=== PATIENT | female | born 1990 | race Caucasian/White ===

== ENCOUNTER 2016-10-15 11:53 | Emergency (ER) | payer OTHER ==
[2016-10-15 12:43] LABS: Urine Bilirubin Negative (NEGATIVE); Urine Blood Negative /ul (NEGATIVE); Urine Ketone Negative (NEGATIVE); Urine Nitrite Negative (NEGATIVE); Urine Protein Negative (NEGATIVE); Urine Urobilinogen Normal (NORMAL); Urine pH 7.5 pH (5.0-7.0)
[2016-10-15 12:53] LABS: Urine Appearance Clear; Urine Bacteria 3+; Urine Color Yellow; Urine RBC 0-5 /hpf (0-5); Urine Renal Epithelial Cell TRACE /hpf; Urine WBC 0-5 /hpf (0-5)
[2016-10-15] MEDS ORDERED: KETOROLAC TROMETHAMINE 60 MG/2 ML VIAL IM ONE ×2 (12:56→13:14)
[2016-10-15] MEDS ORDERED: SUCRALFATE 1 G/10 ML UDC PO ONE (12:57)
[2016-10-15] MEDS ORDERED: LIDOCAINE HCL 20 ML UDC PO ONE (12:57)
[2016-10-15] MEDS ORDERED: MAG HYDROX/ALUMINUM HYD/SIMETH 30 ML UDC PO ONE (12:57)
--- NOTE | 2016-10-15 13:02 | ERNOTE ---
Abdominal HPI - Narrative Date of Service: 10/15/16 - General Chief Complaint: Abdominal Pain Time Seen by Provider: 10/15/16 12:49 Source: patient Exam Limitations: no limitations - Immun/Allergies/Home Medications Immunizatons: IMMUNIZATION HX Immunizations Up to Date Yes History of Influenza Vaccine Yes Hx Pneumococcal Vaccination No Allergies/Adverse Reactions: Allergies buspirone HCl [From BuSpar] Adverse Reaction (Mild, Verified 10/15/16 12:33) n/t Home Medications: HOME MEDICATIONS Cyclobenzaprine HCl [Flexeril] 10 mg PO TID PRN #30 tab 07/09/16 [Last Taken Unknown] Esomeprazole Magnesium [Nexium] 20 mg PO DAILY #30 capsule. 10/15/16 [Last Taken Unknown] Sucralfate [Carafate Suspension] 1 g PO ACHS #60 udc 10/15/16 [Last Taken Unknown] Sulfamethoxazole/Trimethoprim [Bactrim Ds] 1 tab PO BID #28 tab 10/15/16 [Last Taken Unknown] - History of Present Illness Narrative: Pt. comes in with c/o mid epigastric pain that radiates to her back for three days. Pt. states that she has had occasional nausea and vomiting but not consistently and it has not stopped her ability to tolerate foods or fluids. Pt. denies any Diarrhea or constipation. Pt. denies any SOB, CP, fever, alleviating factors, aggravating factors, or other symptoms at this time. Review of Systems - Review of Systems Constitutional: Present: no symptoms reported. Absent: weakness, fatigue, malaise EYE: Present: no symptoms reported ENT: Present: no symptoms reported Respiratory: Present: no symptoms reported. Absent: cough, orthopnea, wheezing Cardiology: Present: no symptoms reported. Absent: chest pain, palpitations, edema Gastrointestinal/Abdominal: Present: nausea, vomiting, abdominal pain. Absent: diarrhea, constipation Genitourinary: Present: no symptoms reported Musculoskeletal: Present: no symptoms reported. Absent: back pain, neck pain, joint pain Skin: Present: no symptoms reported. Absent: rash, change in color Neurological: Present: no symptoms reported. Absent: headache, dizziness/light- headedness, numbness, tingling All Other Systems: All systems neg except as marked - Patient's Past Medical History Patient History - Medical: No pertinent hx, Anxiety, Migraines Patient History - Cardiac/Respiratory: No pertinent hx Patient History - Cancer: Cervical Patient History - Surgical Procedures: No surgical history Patient History - Other: None LMP (Calendar): 08/06/16 - Family History Mother Family History - Medical: History Unknown Family History - Cardiac/Respiratory: History Unknown Father Family History - Medical: Anxiety, Depression Family History - Cardiac/Respiratory: Hypertension, Hyperlipidemia, Myocardial Infarction - Social History Living Situations: home Does anyone smoke in the home?: Yes Alcohol Use: occasionally Drug Use: none - Immunizations Immunizations Up to Date: Yes Hx Pneumococcal Vaccination: No History of Influenza Vaccine: Yes Physical Exam - Physical Exam General Appearance: Present: wd/wn, alert, no apparent distress Eye Exam: Normal inspection: bilateral, PERRL: bilateral, EOMI: bilateral Ears, Nose, Throat: Present: normal ENT inspection, hearing grossly normal, normal pharynx Neck: Present: normal inspection, nontender. Absent: lymphadenopathy (R), lymphadenopathy (L) Respiratory: Present: no respiratory distress, normal breath sounds, no accessory muscle use, chest nontender Cardiovascular/Chest: Present: regular rate, rhythm, no murmur, normal peripheral pulses Gastrointestinal/Abdominal: Present: normal bowel sounds, nondistended, soft, no organomegaly, tenderness - mid epigastric Back Exam: Present: normal range of motion, no vertebral tenderness, CVA tenderness (R), CVA tenderness (L) Extremity Exam: Present: normal inspection, non-tender, no edema, normal range of motion Neurological Exam: Present: alert, oriented, normal mood/affect, no motor/ sensory deficits, almond pan finisher II-XII nml as tested, normal cerebellar test Skin Exam: Present: normal color, warm/dry. Absent: pallor, skin rash ED Progress - Results and Orders Patient's Lab Results:: I have reviewed the patient's lab results. - Vital Signs Patient's Vital Signs:: I have reviewed the patient's vital signs. Vital Signs: Vital Signs 10/15/16 12:29 Temperature 35.8 C L Pulse Rate 78 Respiratory 12 Rate Blood Pressure 105/72 O2 Sat by Pulse 100 Oximetry - X-Ray X-Ray #1 X-Ray: abdomen Interpretation: Interp. by me X-ray Comments: no obstruction and no free air, frannie evidence of previously seen infrarenal stones. - Progress/Reassessment Chief Complaint: Abdominal Pain Departure - Departure Clinical Impression: Enteritis UTI (urinary tract infection) Qualifiers: Urinary tract infection type: acute pyelonephritis Qualified Code(s): N10 - Acute pyelonephritis Disposition: Home self-care Condition: Good Instructions: Urinary Tract Infection, Adult, [id number], Gastritis, Adult, [id number] Additional Instructions: Please follow up with primary provider in 2-3 days. Follow up with Urology as planned. Referrals: Shy Rosenthal MD [Primary Care Provider] - Prescriptions: Esomeprazole Magnesium [Nexium] 20 mg PO DAILY #30 capsule. Sucralfate [Carafate Suspension] 1 g PO ACHS #60 udc Sulfamethoxazole/Trimethoprim [Bactrim Ds] 1 tab PO BID #28 tab
[2016-10-15 13:10] LABS: Albumin * 3.8 gm/dl (3.4-5.0); Anion Gap 13.1 mmol/L (6.8-13.8); BUN/Creatinine Ratio 17.9 (9.0-21.6); Bilirubin, Total 0.3 mg/dL (0.0-1.1); Ca. Corrected For Albumin 8.5 mg/dL (8.4-10.2); Calcium * 8.7 mg/dL (7.9-10.9); Carbon Dioxide 28.5 mmol/L (24-32.6); Potassium 3.6 mmol/L (3.4-4.6); Total Protein 7.2 gm/dL (6.2-8.2)
[2016-10-15 13:11] LABS: Hematocrit 40.3 % (37.0-47.0); Hemoglobin 13.3 gm/dL (12.5-16.0); Mean Cell Volume 87.4 fl (78-100); Mean Corpuscular Hemoglobin 28.9 pg (27-31); Neutrophil # 5.8 K/mm3 (1.3-6.0); Neutrophil % 57.4 % (42-75.0); Platelet Count 265 K/mm3 (150-450); Red Blood Count 4.61 M/mm3 (4.2-5.4); Red Cell Distribution Width 14.4 % (11.5-14.0)
[2016-10-15 13:26] VITALS: BP 116/54
== END 2016-10-15 15:43 | disposition home or self-care (01) ==
LOC: ER 11:53
DX: N10 Acute pyelonephritis (principal); B95.2 Enterococcus as the cause of diseases classified elsewhere; K52.9 Noninfective gastroenteritis and colitis, unspecified

== ENCOUNTER 2017-01-14 17:49 | Emergency (ER) | payer OTHER ==
[2017-01-14] MEDS ORDERED: PROMETHAZINE HCL 50 MG/ML AMPUL IM ONE ×2 (18:24→18:29)
[2017-01-14] MEDS ORDERED: KETOROLAC TROMETHAMINE 60 MG/2 ML VIAL IM ONE ×2 (18:24→18:29)
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
[2017-01-14 18:52] VITALS: BP 126/72
== END 2017-01-14 18:50 | disposition home or self-care (01) ==
LOC: ER 17:49
DX: G43.909 Migraine, unspecified, not intractable, without status migrainosus (principal); F17.210 Nicotine dependence, cigarettes, uncomplicated; Z85.41 Personal history of malignant neoplasm of cervix uteri

== ENCOUNTER 2017-04-23 19:31 | Emergency (ER) | payer OTHER ==
[2017-04-23 19:40] VITALS: BP 121/72
[2017-04-23] MEDS ORDERED: diphenhydrAMINE HCL 50 MG/ML VIAL IM ONE (20:06)
[2017-04-23] MEDS ORDERED: KETOROLAC TROMETHAMINE 60 MG/2 ML VIAL IM ONE ×2 (20:06→20:11)
[2017-04-23] MEDS ORDERED: METOCLOPRAMIDE HCL 5 MG/ML VIAL IM ONE (20:07)
[2017-04-23] MEDS ORDERED: METOCLOPRAMIDE HCL 5 MG/ML VIAL ONE (20:11)
[2017-04-23] MEDS ORDERED: diphenhydrAMINE HCL 50 MG/ML VIAL ONE (20:11)
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
== END 2017-04-23 20:36 | disposition home or self-care (01) ==
LOC: ER 19:31
DX: G43.909 Migraine, unspecified, not intractable, without status migrainosus (principal); Z85.41 Personal history of malignant neoplasm of cervix uteri; F17.200 Nicotine dependence, unspecified, uncomplicated

== ENCOUNTER 2017-05-09 19:25 | Emergency (ER) | payer OTHER ==
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
[2017-05-09 21:53] VITALS: BP 106/65
== END 2017-05-09 21:26 | disposition home or self-care (01) ==
LOC: ER 19:25
DX: L60.0 Ingrowing nail (principal); Z85.41 Personal history of malignant neoplasm of cervix uteri

== ENCOUNTER 2020-01-21 23:03 | Inpatient (IN) ==
[2020-01-22 00:04] LABS: Hemoglobin 9.5 gm/dL (12.5-16.0); Mean Cell Volume 84.8 fl (78-100); Mean Corpuscular Hemoglobin 27.8 pg (27-31); Mean Corpuscular Hgb Conc 32.8 g/dl (32-36); Mean Platelet Volume 9.5 fl (8-12.5); Neutrophil # 11.6 K/mm3 (1.3-6.0); Neutrophil % 71.3 % (42-75.0); Platelet Count 236 K/mm3 (150-450); Red Blood Count 3.42 M/mm3 (4.2-5.4); Red Cell Distribution Width 14.9 % (11.5-14.0); White Blood Count 16.2 K/mm3 (4.0-10.5)
[2020-01-22 00:27] LABS: Cocaine Ur Negative (NEGATIVE); Urine Barbiturate Negative (NEGATIVE); Urine Benzodiazepines Negative (NEGATIVE); Urine Opiates Negative (NEGATIVE); Urine PCP Negative (NEGATIVE); Urine THC Negative (NEGATIVE)
[2020-01-22] MEDS ORDERED: RINGER'S SOLUTION,LACTATED 1,000 ML IV ONE (01:49)
[2020-01-22] MEDS ORDERED: OXYTOCIN/DEXTROSE 5%-WATER 30 UNITS/500 ML BAG IV ONE ×2 (01:49→22:06)
[2020-01-22] MEDS ORDERED: ONDANSETRON 4 MG TAB.RAPDIS PO PRN (01:49)
[2020-01-22] MEDS ORDERED: ONDANSETRON HCL/PF 2 MG/ML VIAL IV PRN (02:10)
[2020-01-22] MEDS ORDERED: NALOXONE HCL 1 MG/1 ML SYRG IV PRN (02:10)
[2020-01-22] MEDS ORDERED: BUPIVACAINE HCL/0.9 % NACL/PF 250 ML EP PRN (02:10)
[2020-01-22] MEDS ORDERED: fentaNYL CITRATE/PF 50 MCG/ML AMPUL IT SCH (02:15)
[2020-01-22] MEDS: DEXTROSE 5%-LACTATED RINGERS 1,000 ML IV PRN ×3 (02:42→18:19)
--- NOTE | 2020-01-22 02:47 | ANES ---
Anesthesia Pre Procedure Eval Vitals/Labs: Last Vital Signs Temp 36.0 C 01/21/20 23:25 Pulse 88 01/21/20 23:25 Resp 20 01/21/20 23:25 BP 113/64 01/21/20 23:25 Pulse Ox 100 01/21/20 23:25 HOME MEDICATIONS valacyclovir 1 gram tablet 1,000 mg PO DAILY #30 tab 01/05/20 [Last Taken 01/21/20 20:00] Pnv No.95/Ferrous Fum/Folic AC [ Caplet] 1 ea PO DAILY 01/20/20 [Last Taken 01/21/20 20:00] Allergies/Adverse Reactions: Allergies Allergy/AdvReac Type Severity Reaction Status Date / Time buspirone HCl [From BuSpar] AdvReac Mild numbness, Verified 01/21/20 15:00 tingling all over - Planned Procedure Planned Procedure: Labor Medication List Reviewed:: Yes Allergies Verified: Yes Medical History (Last Reviewed 01/22/20 @ 02:45 by Houston Dumont CRNA) Anemia Onset Date: 11/10/19 w/ Current tobacco use Onset Date: Unknown 1 ppd 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/19 History of recreational drug use Onset Date: Unknown Manic depression Onset Date: Unknown Occasional alcohol consumption Onset Date: Unknown PTSD (post-traumatic stress disorder) Onset Date: Unknown Allergic rhinitis Onset Date: Unknown Anxiety disorder Onset Date: 08/27/12 Body piercing Onset Date: Unknown Headache Onset Date: 11/22/15 Irregular menses Onset Date: 02/23/13 Knee pain Onset Date: 12/28/14 right Metrorrhagia Onset Date: 07/14/13 likely related to the Mirena IUD Pelvic pain Onset Date: 07/14/13 Tattoos Onset Date: Unknown Wears glasses Onset Date: Unknown Abnormal Pap smear of cervix Onset Date: Unknown Bacterial vaginitis Onset Date: 04/08/12 Cervical dysplasia Onset Date: Unknown Chlamydia Onset Date: ~2009 Dyspareunia Onset Date: 04/30/14 Elective Onset Date: ~2008 Papanicolaou smear of anus with low grade squamous intraepithelial lesion (LGSIL) Onset Date: 09/21/15 Spontaneous Onset Date: Unknown x2 Kidney stone Onset Date: ~01/2016 Surgical History (Last Reviewed 01/22/20 @ 02:46 by Houston Dumont CRNA) Encounter for insertion of mirena IUD Onset Date: ~08/2011 H/O LEEP Onset Date: Unknown VALERIE History of D&C Onset Date: Unknown History of colposcopy Onset Date: 08/27/132012 & 02/13/2019. 02/13/2019-TRINH II Family History (Last Reviewed 01/22/20 @ 02:46 by Houston Dumont CRNA) Mother Alive and well Father Myocardial infarction Aunt Cancer paternal great aunt - breast cancer Sister Ovarian cyst Brother Alive and well Brother Alive and well Brother Alive and well Daughter Asthma Daughter Alive and well Son Alive and well Grandfather Cancer paternal paternal - Family Anesthesia History Family History:: no untoward family reactions to anesthesia, no familial bleeding tendencies, no family history of clotting disorders, no family history of premature - Airway/Neck/Teeth Within Normal Limits:: Yes Teeth Condition: intact Neck Exam: full range of motion Mallampatti Score: 2 Thyromental (T-M) distance: > 6 cm Mandibulo Hyoid distance: > 3 cm - Respiratory Respiratory Physical: lungs clear Smoking Status: Never smoker Sleep Apnea currently treated: No Sleep Apnea by current assessment: No - Cardiovascular Tolerate Activity: Fair Heart Sounds: S1 & S2, Regular - Gastrointestinal NPO since: 0 - Anesthesia Assessment and Plan ASA Class: PS, II, E Anesthesia Type Plan: Epidural - CSE for labor analgesia
--- NOTE | 2020-01-22 03:07 | ANES ---
Post Anesthesia Discharge - Transfer of Care Transfer of Care handoff given to nurse: Yes - Discharge from PACU Discharge from PACU when meets criteria: Yes - Comfortable post CSE.
--- NOTE | 2020-01-22 03:09 | ANES ---
Anesthesia Procedure Note Procedure Note: ANESTHESIA PROCEDURE NOTE Date of Procedure: 01/22/2020 Time of procedure: 2:45 AM. Performed by: TREVA Herndon CRNA, MSN District Claims Manager: Aliza Lin RN. Preprocedure diagnosis: Active labor, labor pain. Post procedure diagnosis: Same. Procedure:Epidural for labor analgesia L4-5. Indications: Labor pain. Findings: See below. Details of the procedure: The patient was placed on the side of the bed in sitting positionand prepped with DuraPrep then draped in a sterile fashion. Lidocaine 1% was infiltrated to the skin and subcutaneous tissues at the level of the L4-5 interspace. An 18-gauge Touhy needle was used to approach the epidural space with loss of resistance technique. Once loss of resistance was achieved a 27-gauge spinal needle was passed through the epidural needle and CSF was contacted. After CSF returned, 20 mcg of fentanyl was injected in the spinal needle was removed the epidural catheter was then threaded approximately 4 cm in the epidural needle was removed. The catheter was taped in place and after careful aspiration 3 mL of 1.5% lidocaine with 1-200,000 epinephrine was injected without change in maternal heart rate or sensorium. . EBL: Minimal. Fluids: N/A. Specimen: N/A. Post procedure condition: The patient tolerated the procedure well with good relief. No complications were noted. Thank you for this consultation. Houston Dumont CRNA, TREVA, MSN
--- NOTE | 2020-01-22 03:15 | ANES ---
Post Anesthesia Assessment - Vital Signs Vitals: Last Vital Signs Temp 36.0 C 01/21/20 23:25 Pulse 88 01/21/20 23:25 Resp 20 01/21/20 23:25 BP 113/64 01/21/20 23:25 Pulse Ox 100 01/21/20 23:25 Airway Patency: Normal - Mental Status Level Of Consciousness: Awake, Alert, Appropriate - Pain Level Pain Score: 0 - N/V Assessment Nausea/Vomiting Presence: None Dehydration:: No
[2020-01-22 10:44] LABS: Hematocrit 28.5 % (37.0-47.0); Hemoglobin 9.2 gm/dL (12.5-16.0); Mean Cell Volume 84.8 fl (78-100); Mean Corpuscular Hemoglobin 27.4 pg (27-31); Mean Corpuscular Hgb Conc 32.3 g/dl (32-36); Mean Platelet Volume 9.6 fl (8-12.5); Neutrophil # 9.4 K/mm3 (1.3-6.0); Neutrophil % 75.3 % (42-75.0); Platelet Count 226 K/mm3 (150-450); Red Blood Count 3.36 M/mm3 (4.2-5.4); Red Cell Distribution Width 14.8 % (11.5-14.0); White Blood Count 12.4 K/mm3 (4.0-10.5)
--- NOTE | 2020-01-22 11:13 | HP ---
Chief Complaint - Chief Complaint Date of Service: 01/22/20 Time of Service: 10:28 Chief Complaint: vaginal bleeding and contractions History of Present Illness: 29 yo at 36 5/7 weeks that presents to L&D complaining of gush of bloody fluid around 2230 last pm and contractions of increasing pain and frequency. Pt admits to LOF/bleeding, and decreased FM for the past 2 days. Pt denies recent trauma, SOB, lightheadedness, weakness, or abdominal pain other than contractions. This complicated by anemia, anxiety d/o, h/o HSV, h/o LEEP, Smoker, and now PROM with PTL. Rh positive Rubella immune GBS negative Medical History (Last Reviewed 01/22/20 @ 10:53 by Mahesh Silver DO) Anemia Onset Date: 11/10/19 w/ Current tobacco use Onset Date: Unknown 1 ppd 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/19 History of recreational drug use Onset Date: Unknown Manic depression Onset Date: Unknown Occasional alcohol consumption Onset Date: Unknown PTSD (post-traumatic stress disorder) Onset Date: Unknown Allergic rhinitis Onset Date: Unknown Anxiety disorder Onset Date: 08/27/12 Body piercing Onset Date: Unknown Headache Onset Date: 11/22/15 Irregular menses Onset Date: 02/23/13 Knee pain Onset Date: 12/28/14 right Metrorrhagia Onset Date: 07/14/13 likely related to the Mirena IUD Pelvic pain Onset Date: 07/14/13 Tattoos Onset Date: Unknown Wears glasses Onset Date: Unknown Abnormal Pap smear of cervix Onset Date: Unknown Bacterial vaginitis Onset Date: 04/08/12 Cervical dysplasia Onset Date: Unknown Chlamydia Onset Date: ~2009 Dyspareunia Onset Date: 04/30/14 Elective Onset Date: ~2008 Papanicolaou smear of anus with low grade squamous intraepithelial lesion (LGSIL) Onset Date: 09/21/15 Spontaneous Onset Date: Unknown x2 Kidney stone Onset Date: ~01/2016 Surgical History: Surgical History (Last Reviewed 01/22/20 @ 10:53 by Mahesh Silver DO) Encounter for insertion of mirena IUD Onset Date: ~08/2011 H/O LEEP Onset Date: Unknown LEETZ History of D&C Onset Date: Unknown History of colposcopy Onset Date: 08/27/132012 & 02/13/2019. 02/13/2019-TRINH II Family History: Family History (Last Reviewed 01/22/20 @ 10:53 by Mahesh Silver DO) Mother Alive and well Father Myocardial infarction Aunt Cancer paternal great aunt - breast cancer Sister Ovarian cyst Brother Alive and well Brother Alive and well Brother Alive and well Daughter Asthma Daughter Alive and well Son Alive and well Grandfather Cancer paternal paternal Social History: (Last Reviewed 01/22/20 @ 10:53 by Mahesh Silver DO) Social History: adopted: No group home: No Marital status: Single lives independently: Yes household members: children, significant other number of children: 3 current occupational status: employed current occupation: Kitchen-cook current occupational exposures/hazards: Yes current occupational exposures/hazards comment: mold in residence 05/2019 Highest education level completed: GED or equivalent Sexually Active: Yes Service: No Tobacco: Smoking Status: Never smoker tobacco type: cigarettes Smoking cigarettes per day: 20.0 Smoking packs per day: 1 Alcohol: alcohol intake: current alcohol intake frequency: a few times a month details: 1 glass of wine since + UPT Substance Use: substance use type: marijuana Dietary Habits: caffeine: Yes Type: coffee Exercise: frequency: other Samantha/Congregational: agree to transfusion: Yes Review Of Systems (GEN) - Review of Systems Generalized/Overall Review: Present: No Symptoms Reported EENTM: Present: No Symptoms Reported Respiratory: Present: No Symptoms Reported Cardiac: Present: No Symptoms Reported Abdominal: Present: Other - contractions Genitourinary: Present: Other - vaginal bleeding/LOF Musculoskeletal: Present: No Symptoms Reported Neurological: Present: No Symptoms Reported Skin: Present: No Symptoms Reported Endocrine: Present: No Symptoms Reported Immunizations: IMMUNIZATION HX Immunizations Up to Date No History of Influenza Vaccine More Information Required Hx Pneumococcal Vaccination More Information Required Allergies/Adverse Reactions: Allergies Allergy/AdvReac Type Severity Reaction Status Date / Time buspirone HCl [From BuSpar] AdvReac Mild numbness, Verified 01/21/20 15:00 tingling all over Home Medications: HOME MEDICATIONS valacyclovir 1 gram tablet 1,000 mg PO DAILY #30 tab 01/05/20 [Last Taken 01/21/20 20:00] Pnv No.95/Ferrous Fum/Folic AC [ Caplet] 1 ea PO DAILY 01/20/20 [Last Taken 01/21/20 20:00] Exam - Exam Vital Signs: Vital Signs - Last Taken Temp 36.0 C 01/21/20 23:25 Pulse 88 01/21/20 23:25 Resp 20 01/21/20 23:25 BP 113/64 01/21/20 23:25 Pulse Ox 100 01/21/20 23:25 Constitutional: Present: Alert, Oriented x3, Cooperative, No distress ENT Exam: Present: hearing grossly normal Neck: Absent: thyromegaly Breasts: Present: Exam deferred Respiratory: Present: lungs clear, no respiratory distress Cardiovascular/Chest: Present: normal peripheral pulses, regular rate, rhythm Abdomen: Present: soft, nontender, no rebound tenderness, other - gravid /Rectal: Present: Other - cervix 4/80/-2, large amount of dark bloody fluid Extremity: Present: non-tender, no pedal edema, no calf tenderness Skin Exam: Present: normal color, warm/dry, no cyanosis Neurologic: Present: alert, normal mood/affect, oriented x 3 Appearance: Present: appropriate appearance Eye contact: Present: cooperative, good eye contact Thoughts: Present: normal thought pattern, normal mood /affect Diagnostic Studies: Abnormal Lab Results 01/21/20 Range/Units 23:55 WBC 16.2 H (4.0-10.5) K/mm3 RBC 3.42 L (4.2-5.4) M/mm3 Hgb 9.5 L (12.5-16.0) gm/dL Hct 29.0 L (37.0-47.0) % RDW 14.9 H (11.5-14.0) % Immature Gran % (Auto) 1.90 H (0.001-0.429) % Immature Gran # (Auto) 0.31 H (0.000-0.0310) K/mm3 Lymphocytes % 18.7 L (20-51) % Neutrophils # 11.6 H (1.3-6.0) K/mm3 Monocytes # 1.1 H (0.0-1.0) k/mm3 Laboratory Results WBC 16.2 K/mm3 (4.0-10.5) H 01/21/20 23:55 RBC 3.42 M/mm3 (4.2-5.4) L 01/21/20 23:55 Hgb 9.5 gm/dL (12.5-16.0) L 01/21/20 23:55 Hct 29.0 % (37.0-47.0) L 01/21/20 23:55 MCV 84.8 fl (78-100) 01/21/20 23:55 MCH 27.8 pg (27-31) 01/21/20 23:55 MCHC 32.8 g/dl (32-36) 01/21/20 23:55 RDW 14.9 % (11.5-14.0) H 01/21/20 23:55 Plt Count 236 K/mm3 (150-450) 01/21/20 23:55 MPV 9.5 fl (8-12.5) 01/21/20 23:55 Immature Gran % (Auto) 1.90 % (0.001-0.429) H 01/21/20 23:55 Immature Gran # (Auto) 0.31 K/mm3 (0.000-0.0310) H 01/21/20 23:55 Neutrophils % 71.3 % (42-75.0) 01/21/20 23:55 Lymphocytes % 18.7 % (20-51) L 01/21/20 23:55 Monocytes % 6.7 % (0.0-9) 01/21/20 23:55 Eosinophils % 1.1 % (0.0-3.0) 01/21/20 23:55 Basophils % 0.3 % (0.0-1.0) 01/21/20 23:55 Nucleated RBC % 0.0 k/mm3 (0-1) 01/21/20 23:55 Neutrophils # 11.6 K/mm3 (1.3-6.0) H 01/21/20 23:55 Lymphocytes # 3.03 k/mm3 (1.5-3.5) 01/21/20 23:55 Monocytes # 1.1 k/mm3 (0.0-1.0) H 01/21/20 23:55 Eosinophils # 0.2 k/mm3 (0.0-0.7) 01/21/20 23:55 Absolute Basophils 0.1 k/mm3 (0.0-0.1) 01/21/20 23:55 Urine Opiates Screen Negative (NEGATIVE) 01/21/20 23:55 Barbiturate Screen Negative (NEGATIVE) 01/21/20 23:55 Ur Phencyclidine Scrn Negative (NEGATIVE) 01/21/20 23:55 Urine Amphetamine Negative (NEGATIVE) 01/21/20 23:55 U Benzodiazepines Scrn Negative (NEGATIVE) 01/21/20 23:55 Urine Cocaine Screen Negative (NEGATIVE) 01/21/20 23:55 Urine Marijuana (THC) Negative (NEGATIVE) 01/21/20 23:55 Blood Type B Positive 01/21/20 23:55 Antibody Screen Negative 01/21/20 23:55 bedside limited ultrasound: only one pocket of fluid (1.89cm), fetus in cephalic presentation with FHT 125 bpm. Assessment/Plan - Narrative Narrative: Admit for management of PTL/PPROM/Partial abruption. Low dose pitocin if needed. Epidural PRN. NPO. Counseled on risks of delivery of baby and possible partial placental abruption and need for section if tracing or maternal status becomes nonreassuring. All questions answered. - Assessment/Plan (1) premature rupture of membranes Problem: Acute Qualifiers: PROM onset of labor timing: onset of labor within 24 hours of rupture Qualified Code(s): O42.019 - premature rupture of membranes, onset of labor within 24 hours of rupture, unspecified trimester (2) labor in third trimester Problem: Acute Qualifiers: labor delivery status: with delivery in third trimester Fetus number: single or unspecified fetus Qualified Code(s): O60.14X0 - labor third trimester with delivery third trimester, not applicable or unspecified (3) Placental abruption in third trimester Assessment: partial Problem: Suspected (4) Anxiety disorder Problem: Chronic Qualifiers: Anxiety disorder type: unspecified anxiety disorder Qualified Code(s): F41.9 - Anxiety disorder, unspecified (5) Anemia Problem: Acute Qualifiers: Anemia type: iron deficiency Iron deficiency anemia type: inadequate dietary iron intake Qualified Code(s): D50.8 - Other iron deficiency anemias (6) Smoker Problem: Chronic (7) HSV antigen DIF positive Problem: Chronic Non Stress Test - Status NST: 05/07/20 Weeks Gestation: 36 4/7 Reason for NST: threatened labor Monitor Mode: External Acceleration: Present Decelerations: None Variability: Moderate 6-25 bpm Baseline Heart Rate: 125 Activity: reactive - Assessment NST Assessment: other - labor, PROM - Plan NST Plan: Admit to L&D
--- NOTE | 2020-01-22 14:59 | PN ---
Progess Note - Interim Date: 01/22/20 Time: 14:55 Narrative: 01/22/20 14:55 Patient comfortable with epidural Vital signs stable. Pitocin at 3 mu/min. FHT: 130 baseline, reassuring contractions q 2-3 min but not picking up well Cervix: 4-5/80/-2, no significant roll changer the past 5 hours. IUPC placed to better assess strength of contractions. Patient still having fair amount of vaginal bleeding drainage-total 263 mL avoid on shocks. Impression: Intrauterine at 36 5/7 weeks and labor with probable partial placental abruption. Plan: Continue with attempt at vaginal delivery unless patient starts showing signs of hypovolemia or fetus shows nonreassuring status. Will recheck another H&H at 1800 hrs. if not delivered by then.
[2020-01-22 18:47] LABS: Hemoglobin 9.5 gm/dL (12.5-16.0); Mean Cell Volume 85.3 fl (78-100); Mean Corpuscular Hemoglobin 27.9 pg (27-31); Mean Corpuscular Hgb Conc 32.8 g/dl (32-36); Mean Platelet Volume 10.6 fl (8-12.5); Neutrophil # 12.1 K/mm3 (1.3-6.0); Platelet Count 246 K/mm3 (150-450); Red Cell Distribution Width 14.9 % (11.5-14.0); White Blood Count 15.7 K/mm3 (4.0-10.5)
--- NOTE | 2020-01-22 22:00 | OR ---
Operative Report - Dictated Report Narrative: Spontaneous vaginal delivery of vigorously crying viable male at 2141 on 01/22/2020 with Apgars 9 and 9 weighing 2780 g and BHAKTI position with tight nuchal cord x1. Cord clamping delayed approximately 1 minute Placenta delivered complete, intact, with three vessel cord with approximately one third of the placenta covered with clot. Estimated blood loss: Less than 50 mL of bright red bleeding with approximately 150 cc of clotted blood. Anesthesia: Epidural Lacerations: None History for MU History for MU Definition: * The number of deliveries resulting in a live the patient experienced prior to current hospitalization * The previous delivery of live twins or any live multiple gestation is considered one live event. *If primagravida or nulliparous is documented select zero for the number of previous live births. Live Events: Live Events: 3
[2020-01-22] MEDS ORDERED: SENNOSIDES 8.6 MG TABLET PO PRN (22:06)
[2020-01-22] MEDS ORDERED: IBUPROFEN 800 MG TABLET PO PRN (22:06)
[2020-01-22] MEDS ORDERED: BENZOCAINE/MENTHOL 81 SPRAY CAN TP PRN (22:06)
[2020-01-22] MEDS ORDERED: BISACODYL 10 MG SUPP.RECT RC PRN (22:06)
[2020-01-22] MEDS ORDERED: HYDROCORTISONE 30 APPL TUBE TP PRN (22:06)
[2020-01-22] MEDS ORDERED: GLYCERIN/WITCH HAZEL LEAF 40 APPL BOX TP PRN (22:06)
[2020-01-22] MEDS: oxyCODONE HCL/ACETAMINOPHEN 1 TAB TABLET PO PRN (22:38)
[2020-01-23] MEDS: oxyCODONE HCL/ACETAMINOPHEN 1 TAB TABLET PO PRN ×5 (03:31→23:22)
[2020-01-23] MEDS: IBUPROFEN 800 MG TABLET PO PRN ×3 (07:04→20:40)
[2020-01-23] MEDS: FERROUS SULFATE 325 MG TABLET PO SCH ×2 (08:05→17:09)
[2020-01-23] MEDS: PRENATAL VITS96/IRON FUM/FOLIC 1 TAB TABLET PO SCH (08:05)
[2020-01-23] MEDS: DOCUSATE SODIUM 100 MG CAPSULE PO SCH ×2 (08:05→20:40)
--- NOTE | 2020-01-23 23:23 | PN ---
Subjective - Date and Time Seen Date: 01/23/20 Time: 23:22 Objective - Vitals Vitals: Last Vital Signs Temp 36.5 C 01/23/20 18:49 Pulse 67 01/23/20 18:49 Resp 18 01/23/20 18:49 BP 101/51 01/23/20 18:49 Pulse Ox 96 01/23/20 18:49 Patient denies complaints. Lochia wnl abdomen - soft, nontender Uterus -firm, at umbilicus - 1 no calf tenderness Impression: day #1 - s/p spontaneous vaginal delivery. Plan: Continue routine care Cauti Physician Documentation - Urinary Catheter Management Urethral (Francis) Date of Insertion: 01/22/20 Time of Insertion: 03:30 Assessment/Plan - Problems/Diagnosis (1) premature rupture of membranes Problem: Acute Qualifiers: PROM onset of labor timing: onset of labor within 24 hours of rupture Qualified Code(s): O42.019 - premature rupture of membranes, onset of labor within 24 hours of rupture, unspecified trimester (2) labor in third trimester Problem: Acute Qualifiers: labor delivery status: with delivery in third trimester Fetus number: single or unspecified fetus Qualified Code(s): O60.14X0 - labor third trimester with delivery third trimester, not applicable or unspecified (3) Placental abruption in third trimester Problem: Suspected (4) Anxiety disorder Problem: Chronic Qualifiers: Anxiety disorder type: unspecified anxiety disorder Qualified Code(s): F41.9 - Anxiety disorder, unspecified (5) Anemia Problem: Acute Qualifiers: Anemia type: iron deficiency Iron deficiency anemia type: inadequate dietary iron intake Qualified Code(s): D50.8 - Other iron deficiency anemias (6) Smoker Problem: Chronic (7) HSV antigen DIF positive Problem: Chronic
--- NOTE | 2020-01-24 01:35 | PN ---
Progess Note - Interim Date: 01/24/20 Time: 01:32 Narrative: 01/24/20 01:32 Patient denies complaints. Lochia wnl abdomen - soft, nontender Uterus -firm, at umbilicus - 2 no calf tenderness Impression: day #2 - s/p spontaneous vaginal delivery. Severe anemia-stable. Baby staying for bilirubin lights due to elevated bilirubin. Plan: Routine discharge instructions. Board for baby. Follow-up in 3 to 4 weeks for routine exam.
[2020-01-24] MEDS: IBUPROFEN 800 MG TABLET PO PRN ×2 (06:03→13:29)
[2020-01-24] MEDS: PRENATAL VITS96/IRON FUM/FOLIC 1 TAB TABLET PO SCH (09:42)
[2020-01-24] MEDS: DOCUSATE SODIUM 100 MG CAPSULE PO SCH (09:43)
[2020-01-24] MEDS: FERROUS SULFATE 325 MG TABLET PO SCH ×2 (09:43→16:53)
[2020-01-24 14:52] VITALS: BP 113/64
== END 2020-01-24 20:05 | disposition home or self-care (01) | DRG 805 ==
LOC: OBCLINIC 23:03 → OB 01-22 01:41
PROVIDERS: ADMIT Obstetrics & Gynecology; ATTEND Obstetrics & Gynecology
CPT/HCPCS: 36415; 59025; 80307; 85025; 86850; 88888

== ENCOUNTER 2021-01-14 15:48 | Inpatient (IN) ==
[2021-01-14 16:41] LABS: Hematocrit 29.8 % (37.0-47.0); Hemoglobin 9.6 gm/dL (12.5-16.0); Mean Cell Volume 83.7 fl (78-100); Mean Corpuscular Hgb Conc 32.2 g/dl (32-36); Mean Platelet Volume 9.8 fl (8-12.5); Neutrophil % 76.5 % (42-75.0); Platelet Count 243 K/mm3 (150-450); Red Blood Count 3.56 M/mm3 (4.2-5.4); Red Cell Distribution Width 16.3 % (11.5-14.0); White Blood Count 13.1 K/mm3 (4.0-10.5)
[2021-01-14 16:57] LABS: Albumin * 2.4 gm/dl (3.4-5.0); BUN/Creatinine Ratio 14.9 (9.0-21.6); Bilirubin, Total 0.1 mg/dL (0.0-1.1); Ca. Corrected For Albumin 9.3 mg/dL (8.4-10.2); Calcium * 8.3 mg/dL (7.9-10.9); Carbon Dioxide 19.4 mmol/L (24-32.6); Potassium 3.4 mmol/L (3.4-4.6); Total Protein 6.3 gm/dL (6.2-8.2)
[2021-01-14] MEDS ORDERED: ACETAMINOPHEN 500 MG TABLET PO ONE (17:00)
[2021-01-14] MEDS ORDERED: OXYTOCIN/0.9 % SODIUM CHLORIDE 30 UNITS/500 ML BAG IV ONE ×2 (18:00→20:40)
--- NOTE | 2021-01-14 19:30 | HP ---
Chief Complaint - Chief Complaint Date of Service: 01/14/21 Time of Service: 19:30 Chief Complaint: headache and decreased movement History of Present Illness: 30yo at 38w4d presents to L&D complaining of headache x 2 days and decre ased movement. She further states she has had intermittent flashes of light. Headache resolved with Tylenol. No flashes since admission. Denies SOB, chest pain, seizures, Covid s/s. This complicated by anemia, anxiety, depression, GDM - insulin dependent, HSV (no outbreaks, on prophylaxis), recurrent UTIs, THC use in 1st trimester, smoker, h/o partial abruption, h/o LEEP, and h/o PTD. Rh positive Rubella immune GBS negative Medical History (Last Reviewed 01/14/21 @ 19:43 by Mahesh Silver DO) De Quervain's tenosynovitis, right (Acute) Gestational diabetes (Acute) Onset Date: 11/08/20 Anemia (Acute) Onset Date: 11/10/19 w/pregnancies 11/10/19, 11/07/20 History of placenta abruption (Chronic) Current tobacco use Onset Date: Unknown 1 ppd 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/19 History of delivery Onset Date: 01/22/20 History of recreational drug use Onset Date: Unknown Influenza vaccine not given Onset Date: ~06/27/20 Patient has already received for the season. CHAPARRITA Carcamo Manic depression Onset Date: Unknown Occasional alcohol consumption Onset Date: Unknown PTSD (post-traumatic stress disorder) Onset Date: Unknown Placental abruption Onset Date: 01/22/20 partial Allergic rhinitis Onset Date: Unknown Anxiety disorder Onset Date: 08/27/12 Body piercing Onset Date: Unknown Headache Onset Date: 11/22/15 Irregular menses Onset Date: 02/23/13 Knee pain Onset Date: 12/28/14 right Metrorrhagia Onset Date: 07/14/13 likely related to the Mirena IUD Pelvic pain Onset Date: 07/14/13 Tattoos Onset Date: Unknown Wears glasses Onset Date: Unknown Abnormal Pap smear of cervix Onset Date: Unknown Bacterial vaginitis Onset Date: 04/08/12 Cervical dysplasia Onset Date: Unknown Chlamydia Onset Date: ~2009 Dyspareunia Onset Date: 04/30/14 Elective Onset Date: ~2008 Papanicolaou smear of anus with low grade squamous intraepithelial lesion (LGSIL) Onset Date: 09/21/15 Right shoulder pain (Resolved) Spontaneous Onset Date: Unknown x2 Kidney stone Onset Date: ~01/2016 Surgical History: Surgical History (Last Reviewed 12/28/20 @ 08:28 by Cata Beltrán CMA) Encounter for insertion of mirena IUD Onset Date: ~08/2011 H/O LEEP Onset Date: Unknown LEETZ History of D&C Onset Date: Unknown History of colposcopy Onset Date: 08/27/132012 & 02/13/2019. 02/13/2019-TRINH II Family History: Family History (Last Reviewed 12/28/20 @ 08:28 by Cata Beltrán CMA) Mother Alive and well Father Myocardial infarction Aunt Cancer paternal great aunt - breast cancer Sister Ovarian cyst Brother Alive and well Brother Alive and well Brother Alive and well Daughter Asthma Daughter Alive and well Son Alive and well Grandfather Cancer paternal paternal Social History: (Last Updated 01/09/21 @ 14:47 by Mahesh iSlver DO) Social History: adopted: No Marital status: Single lives independently: Yes household members: children number of children: 4 current occupational status: employed current occupation: Unemployed- current occupational exposures/hazards: Yes current occupational exposures/hazards comment: mold in residence 05/2019 Highest level of school completed/degree received: GED or equivalent Sexually Active: Yes how many partners: 1 Service: No Tobacco: Smoking Status: Current every day smoker tobacco type: cigarettes Smoking cigarettes per day: 10 Alcohol: alcohol intake: former alcohol intake frequency: a few times a month Substance Use: substance use type: does not use Dietary Habits: caffeine: Yes Type: coffee daily servings of milk/calcium: 2-4 Exercise: frequency: other Samantha/Zoroastrianism: agree to transfusion: Yes Review Of Systems (GEN) - Review of Systems Generalized/Overall Review: Present: No Symptoms Reported EENTM: Present: No Symptoms Reported Respiratory: Present: No Symptoms Reported Cardiac: Present: No Symptoms Reported Abdominal: Present: No Symptoms Reported Genitourinary: Present: No Symptoms Reported Musculoskeletal: Present: No Symptoms Reported Neurological: Present: Headache - resolved in L&D after Tylenol, Anxiety. Absent: Parasthesia, Seizure Skin: Present: No Symptoms Reported Endocrine: Present: No Symptoms Reported Immunizations: IMMUNIZATION HX Immunizations Up to Date No History of Influenza Vaccine More Information Required Hx Pneumococcal Vaccination More Information Required Allergies/Adverse Reactions: Allergies Allergy/AdvReac Type Severity Reaction Status Date / Time buspirone HCl [From BuSpar] AdvReac Mild numbness, Verified 01/14/21 15:57 tingling all over Home Medications: HOME MEDICATIONS acetaminophen 500 mg tablet 1,000 mg PO Q8H PRN tab 06/23/20 [Last Taken 01/14/21 08:00] acetone (urine) test See Rx Instructions .ROUTE .MEDSUPPLY #100 ea 11/08/20 [Last Taken Unknown] blood sugar diagnostic See Rx Instructions .ROUTE .MEDSUPPLY #100 ea 11/08/20 [Last Taken Unknown] blood-glucose meter See Rx Instructions .ROUTE .MEDSUPPLY #1 ea 11/08/20 [Last Taken 12/19/20] lancets 30 gauge See Rx Instructions .ROUTE .MEDSUPPLY #200 ea 11/08/20 [Last Taken Unknown] ferrous sulfate 325 mg (65 mg iron) tablet 325 mg PO BID #30 tab 12/22/20 [Last Taken 01/14/21] valacyclovir 500 mg tablet 500 mg PO BID #60 tab 12/26/20 [Last Taken 01/14/21] insulin NPH isoph U-100 human 100 unit/mL (3 mL) subcutaneous pen 28 unit SUBCUT QPM ml 01/02/21 [Last Taken 01/13/21] Cefuroxime Axetil [Cefuroxime] See Rx Instructions PO HS 01/14/21 [Last Taken 01/13/21] Vits96/Iron Fum/Folic [ S] 1 tab PO DAILY 01/14/21 [Last Taken 01/13/21] Exam - Exam Vital Signs: Vital Signs - Last Taken Temp 36.7 C 01/14/21 18:25 Pulse 87 01/14/21 18:25 Resp 18 01/14/21 18:25 BP 131/77 01/14/21 18:25 Pulse Ox 100 01/14/21 18:25 intermittent elevated BPs 156/81, 158/72, 150/71, 149/68, 148/67 Constitutional: Present: Alert, Oriented x3, Cooperative, Mild distress ENT Exam: Present: hearing grossly normal Neck: Present: non-tender Breasts: Present: Exam deferred Respiratory: Present: lungs clear, no respiratory distress. Absent: wheezing Cardiovascular/Chest: Present: normal peripheral pulses, regular rate, rhythm, no edema Abdomen: Present: soft, nontender, no rebound tenderness, other - gravid /Rectal: Present: Other - 3/60/-1 Extremity: Present: non-tender, no pedal edema, no calf tenderness Skin Exam: Present: normal color, warm/dry, no cyanosis Neurologic: Present: alert, normal mood/affect, oriented x 3, other - DTR 1/4, no clonus Appearance: Present: appropriate appearance, appropriate insight Eye contact: Present: cooperative, good eye contact Thoughts: Present: normal thought pattern, normal mood /affect Diagnostic Studies: Abnormal Lab Results 01/14/21 01/14/21 01/14/21 Range/Units 16:34 16:34 16:34 WBC 13.1 H (4.0-10.5) K/mm3 RBC 3.56 L (4.2-5.4) M/mm3 Hgb 9.6 L (12.5-16.0) gm/dL Hct 29.8 L (37.0-47.0) % RDW 16.3 H (11.5-14.0) % Immature Gran % (Auto) 0.90 H (0.001-0.429) % Immature Gran # (Auto) 0.12 H (0.000-0.0310) K/mm3 Neutrophils % 76.5 H (42-75.0) % Lymphocytes % 15.6 L (20-51) % Neutrophils # 10.0 H (1.3-6.0) K/mm3 Carbon Dioxide 19.4 L (24-32.6) mmol/L Anion Gap 17.0 H (6.8-13.8) mmol/L Est GFR (Non-Af Amer) 164 H D (60-130) mL/min Alkaline Phosphatase 173 H (50-170) U/L Albumin 2.4 L (3.4-5.0) gm/dl U Random Total Protein 55.0 H (0-12) mg/dL U [place] Prot/Creat Ratio 625 H (0-199) mg/gm Laboratory Results WBC 13.1 K/mm3 (4.0-10.5) H 01/14/21 16:34 RBC 3.56 M/mm3 (4.2-5.4) L 01/14/21 16:34 Hgb 9.6 gm/dL (12.5-16.0) L 01/14/21 16:34 Hct 29.8 % (37.0-47.0) L 01/14/21 16:34 MCV 83.7 fl (78-100) 01/14/21 16:34 MCH 27.0 pg (27-31) 01/14/21 16:34 MCHC 32.2 g/dl (32-36) 01/14/21 16:34 RDW 16.3 % (11.5-14.0) H 01/14/21 16:34 Plt Count 243 K/mm3 (150-450) 01/14/21 16:34 MPV 9.8 fl (8-12.5) 01/14/21 16:34 Immature Gran % (Auto) 0.90 % (0.001-0.429) H 01/14/21 16:34 Immature Gran # (Auto) 0.12 K/mm3 (0.000-0.0310) H 01/14/21 16:34 Neutrophils % 76.5 % (42-75.0) H 01/14/21 16:34 Lymphocytes % 15.6 % (20-51) L 01/14/21 16:34 Monocytes % 6.0 % (0.0-9) 01/14/21 16:34 Eosinophils % 0.8 % (0.0-3.0) 01/14/21 16:34 Basophils % 0.2 % (0.0-1.0) 01/14/21 16:34 Nucleated RBC % 0.0 k/mm3 (0-1) 01/14/21 16:34 Neutrophils # 10.0 K/mm3 (1.3-6.0) H 01/14/21 16:34 Lymphocytes # 2.05 k/mm3 (1.5-3.5) 01/14/21 16:34 Monocytes # 0.8 k/mm3 (0.0-1.0) 01/14/21 16:34 Eosinophils # 0.1 k/mm3 (0.0-0.7) 01/14/21 16:34 Absolute Basophils 0.0 k/mm3 (0.0-0.1) 01/14/21 16:34 Sodium 137 mmol/L (132-142) 01/14/21 16:34 Plasma Sodium 137 mmol/L (130-142) 01/14/21 16:34 Potassium 3.4 mmol/L (3.4-4.6) 01/14/21 16:34 Chloride 104 mmol/L (97-106) 01/14/21 16:34 Carbon Dioxide 19.4 mmol/L (24-32.6) L 01/14/21 16:34 Anion Gap 17.0 mmol/L (6.8-13.8) H 01/14/21 16:34 BUN 7 mg/dL (3-23) 01/14/21 16:34 Creatinine 0.47 mg/dL (0.4-1.4) 01/14/21 16:34 Est GFR (Non-Af Amer) 164 mL/min (60-130) H D 01/14/21 16:34 BUN/Creatinine Ratio 14.9 (9.0-21.6) 01/14/21 16:34 Random Glucose 103 mg/dL (70-110) 01/14/21 16:34 Calcium 8.3 mg/dL (7.9-10.9) 01/14/21 16:34 Calcium Adj for Albumin 9.3 mg/dL (8.4-10.2) 01/14/21 16:34 Total Bilirubin 0.1 mg/dL (0.0-1.1) 01/14/21 16:34 AST 15 U/L (0-48) 01/14/21 16:34 ALT 21 U/L (19-67) 01/14/21 16:34 Alkaline Phosphatase 173 U/L (50-170) H 01/14/21 16:34 Total Protein 6.3 gm/dL (6.2-8.2) 01/14/21 16:34 Albumin 2.4 gm/dl (3.4-5.0) L 01/14/21 16:34 Ur Random Creatinine 88.0 mg/dL (60-200) 01/14/21 16:34 U Random Total Protein 55.0 mg/dL (0-12) H 01/14/21 16:34 U [place] Prot/Creat Ratio 625 mg/gm (0-199) H 01/14/21 16:34 Assessment/Plan - Assessment/Plan (1) Preeclampsia Assessment: Admit for pitocin induction of labor. Insulin drip protocol. Seizure precautions. Epidural PRN. Problem: Acute Qualifiers: Trimester: third trimester Qualified Code(s): O14.93 - Unspecified pre- eclampsia, third trimester (2) Gestational diabetes Problem: Acute Qualifiers: Gestational diabetes mellitus control: insulin-controlled Trimester: third trimester Qualified Code(s): O24.414 - Gestational diabetes mellitus in , insulin controlled (3) Anemia Problem: Chronic Qualifiers: Anemia type: iron deficiency Iron deficiency anemia type: inadequate dietary iron intake Qualified Code(s): D50.8 - Other iron deficiency anemias (4) Anxiety disorder Problem: Inactive Qualifiers: Anxiety disorder type: unspecified anxiety disorder (5) Smoker Problem: Chronic (6) HSV antigen DIF positive Problem: Chronic (7) History of LEEP (loop electrosurgical excision procedure) of cervix complicating Problem: Chronic Qualifiers: Trimester: third trimester Qualified Code(s): O34.43 - Maternal care for o ther abnormalities of cervix, third trimester; Z98.890 - Other specified postprocedural states (8) History of delivery, currently Problem: Chronic (9) History of placenta abruption Problem: Chronic Non Stress Test - Status NST: 01/14/21 Weeks Gestation: 38w4d Reason for NST: decreased movement, preeclampsia Monitor Mode: External Acceleration: Present Decelerations: None Variability: Moderate 6-25 bpm Activity: reactive - Assessment NST Assessment: decreased movement - resolved, preeclampsia - Plan NST Plan: Admit to L&D
--- NOTE | 2021-01-14 19:34 | PN ---
Progess Note - Interim Date: 01/14/21 Time: 19:32 Narrative: 01/14/21 19:32 Patient denies headache, visual changes, or epigastric pain. Rates her contractions as mild. Vital signs stable. Pitocin at 4 mu/min. FHT: 120 baseline, reassuring contractions q 2-3 min Cervix: 4/80/-2, AROM-clear Impression: Intrauterine at 38 4/7 weeks induction of labor for preeclampsia. Insulin-dependent gestational diabetes-controlled. Plan: Continue present plan. Monitor for severe features.
[2021-01-14] MEDS ORDERED: RINGER'S SOLUTION,LACTATED 1,000 ML IV ONE (20:03)
[2021-01-14] MEDS ORDERED: INSULIN REGULAR, HUMAN 100 UNITS in NORMAL SALINE 100 ML IV PRN ×2 (20:03)
[2021-01-14] MEDS ORDERED: ONDANSETRON 4 MG TAB.RAPDIS PO PRN (20:03)
[2021-01-14] MEDS ORDERED: DEXTROSE 5%-LACTATED RINGERS 1,000 ML IV PRN (20:07)
[2021-01-15] MEDS: RINGER'S SOLUTION,LACTATED 1,000 ML IV PRN ×2 (02:40→04:10)
[2021-01-15] MEDS ORDERED: NALOXONE HCL 1 MG/1 ML SYRG IV PRN (02:45)
[2021-01-15] MEDS ORDERED: ONDANSETRON HCL/PF 2 MG/ML VIAL IV PRN (02:45)
[2021-01-15] MEDS ORDERED: fentaNYL CITRATE/PF 50 MCG/ML AMPUL IT SCH (02:45)
[2021-01-15] MEDS ORDERED: BUPIVACAINE HCL/0.9 % NACL/PF 250 ML EP PRN (02:45)
--- NOTE | 2021-01-15 05:29 | OR ---
Operative Report - Dictated Report Narrative: Spontaneous vaginal delivery of vigorously crying viable female at 0510 on 01/15/2021 with Apgars 9 and 9, weighing 3498 g in DONIS position with tight nuchal cord x1. Cord clamping delayed approximately 1 minute Placenta delivered complete, intact, with three vessel cord Estimated blood loss: Less than 50 ml Anesthesia: None Lacerations: None History for MU History for MU Definition: * The number of deliveries resulting in a live the patient experienced prior to current hospitalization * The previous delivery of live twins or any live multiple gestation is considered one live event. *If primagravida or nulliparous is documented select zero for the number of previous live births. Live Events: Live Events: 4
[2021-01-15] MEDS ORDERED: BENZOCAINE/MENTHOL 81 SPRAY CAN TP PRN (05:36)
[2021-01-15] MEDS ORDERED: BISACODYL 10 MG SUPP.RECT RC PRN (05:36)
[2021-01-15] MEDS ORDERED: HYDROCORTISONE 30 APPL TUBE TP PRN (05:36)
[2021-01-15] MEDS ORDERED: OXYTOCIN/0.9 % SODIUM CHLORIDE 30 UNITS/500 ML BAG IV ONE (05:36)
[2021-01-15] MEDS ORDERED: SENNOSIDES 8.6 MG TABLET PO PRN (05:36)
[2021-01-15] MEDS ORDERED: GLYCERIN/WITCH HAZEL LEAF 40 APPL BOX TP PRN (05:36)
[2021-01-15] MEDS ORDERED: IBUPROFEN 800 MG TABLET PO PRN (05:37)
[2021-01-15] MEDS ORDERED: IBUPROFEN 800 MG TABLET ONE (05:49)
[2021-01-15] MEDS: IBUPROFEN 800 MG TABLET PO PRN ×3 (05:50→20:39)
[2021-01-15] MEDS: oxyCODONE HCL/ACETAMINOPHEN 1 TAB TABLET PO PRN ×5 (06:36→22:48)
[2021-01-15] MEDS: DOCUSATE SODIUM 100 MG CAPSULE PO SCH ×2 (09:35→20:38)
[2021-01-16] MEDS: IBUPROFEN 800 MG TABLET PO PRN ×4 (02:41→21:08)
[2021-01-16] MEDS: DOCUSATE SODIUM 100 MG CAPSULE PO SCH ×2 (08:42→21:08)
[2021-01-16] MEDS: oxyCODONE HCL/ACETAMINOPHEN 1 TAB TABLET PO PRN (10:35)
--- NOTE | 2021-01-16 11:53 | PN ---
Subjective - Date and Time Seen Date: 01/16/21 Time: 11:49 Objective - Vitals Vitals: Last Vital Signs Temp 36.7 C 01/16/21 06:56 Pulse 66 01/16/21 06:56 Resp 18 01/16/21 06:56 BP 120/66 01/16/21 06:56 Pulse Ox 97 01/16/21 02:24 Patient denies complaints. Bottle/breast-feeding. Patient desires permanent sterilization. Lochia wnl abdomen - soft, nontender Uterus -firm, at umbilicus - 1 No calf tenderness Impression: day #1 - s/p spontaneous vaginal delivery. Gestational diabetes-resolved. Preeclampsia-resolved. Plan: Continue routine care. Informed consent signed for laparoscopic bilateral salpingectomy. Patient's insurance requires a 30-day wait period after signing consent, so she will be scheduled next month for her procedure. Assessment/Plan - Problems/Diagnosis (1) Preeclampsia Problem: Resolved Qualifiers: Trimester: third trimester Qualified Code(s): O14.93 - Unspecified pre- eclampsia, third trimester (2) Gestational diabetes Problem: Resolved Qualifiers: Gestational diabetes mellitus control: insulin-controlled Trimester: third trimester Qualified Code(s): O24.414 - Gestational diabetes mellitus in , insulin controlled (3) Anemia Problem: Chronic Qualifiers: Anemia type: iron deficiency Iron deficiency anemia type: inadequate dietary iron intake Qualified Code(s): D50.8 - Other iron deficiency anemias (4) Anxiety disorder Problem: Inactive Qualifiers: Anxiety disorder type: unspecified anxiety disorder (5) Smoker Problem: Chronic (6) HSV antigen DIF positive Problem: Chronic (7) History of LEEP (loop electrosurgical excision procedure) of cervix complicating Problem: Chronic Qualifiers: Trimester: third trimester Qualified Code(s): O34.43 - Maternal care for ot her abnormalities of cervix, third trimester; Z98.890 - Other specified postprocedural states (8) History of delivery, currently Problem: Chronic (9) History of placenta abruption Problem: Chronic (10) (normal spontaneous vaginal delivery) Problem: Acute
--- NOTE | 2021-01-16 12:03 | DS ---
OB Discharge Summary (1) (normal spontaneous vaginal delivery) Status: Acute (2) Preeclampsia Status: Resolved Qualifiers: Trimester: third trimester Qualified Code(s): O14.93 - Unspecified pre- eclampsia, third trimester (3) Gestational diabetes Status: Resolved Qualifiers: Gestational diabetes mellitus control: insulin-controlled Trimester: third trimester Qualified Code(s): O24.414 - Gestational diabetes mellitus in , insulin controlled (4) Anemia Status: Chronic Qualifiers: Anemia type: iron deficiency Iron deficiency anemia type: inadequate dietary iron intake Qualified Code(s): D50.8 - Other iron deficiency anemias (5) Anxiety disorder Status: Chronic Qualifiers: Anxiety disorder type: unspecified anxiety disorder Qualified Code(s): F41.9 - Anxiety disorder, unspecified (6) Smoker Status: Chronic (7) HSV antigen DIF positive Status: Chronic (8) History of LEEP (loop electrosurgical excision procedure) of cervix complicating Status: Chronic Qualifiers: Trimester: third trimester Qualified Code(s): O34.43 - Maternal care for other abnormalities of cervix, third trimester; Z98.890 - Other specified postprocedural states (9) History of delivery, currently Status: Chronic (10) History of placenta abruption Status: Chronic Delivery Date: 01/15/21 Delivery Time: 05:10 :: 8 Para:: 5 Gestational weeks:: 38 Gestational days:: 5 Intrapartum Procedures: Spontaneous Vaginal Delivery, Delivered Procedures: None /OP Complications: GDM Discharge Diagnosis: Term -Delivered - Discharge Information Date of Discharge: 01/17/21 Hospital Course: 30-year-old 8 now para 5 admitted at 38 4/7 weeks for induction of labor due to preeclampsia. Patient presented originally to labor and delivery complaining of headache and decreased movement her headache resolved with Tylenol. Throughout her period of observation however her blood pressures were elevated and protein/creatinine ratio was 625. Patient's hospital course and delivery were uncomplicated. Blood pressures quickly resolved after delivery. She was discharged with routine discharge instructions and preeclampsia precautions. Patient also signed informed consent for laparoscopic bilateral salpingectomy to be done . Discharge Location: Home Disposition: Home self-care Condition: Good Referrals: Shy Rosenthal MD [Primary Care Provider] - Activity on Discharge:: Activity as tolerated, Pelvic Rest Discharge Diet: General/regular food Additional Patient Instructions (free text): Tracy will follow up with Dr. Silver on January 31 at 2:15 PM. Continue to take vitamins one daily. Rest when your baby rests. Mirella will follow up with Juan Myrick on at 10:30 AM. Mirella birthweight was 7# 11.3 oz today's weight was 7# 8.8 oz. Mirella blood type is B positive. She has passed her hearing in both ears, her CHD and her Metabolic Screen has been drawn. Her TCB was 7.6 at 48 hour. Always use safe sleeping practices, always place Mirella on her back to sleep in her own bed, no co-sleeping, no heavy blankets, bumper pad, stuffed animals or pillows in sleeping areas. Thank you for choosing [facility] for your special event. We hope we have exceeded your expectations for your special event. If you have any questions or concerns please call the [facility] [phone]. [facility] [phone] or [facility] [phone]. Prescriptions (Any new or edited meds): Ferrous Sulfate 325 mg PO DAILY #60 tab Ibuprofen [Motrin] 200 - 800 mg PO Q6H PRN #100 tab PRN Reason: Pain Complete Home Medications List: Complete Home Medication List: acetaminophen 500 mg tablet 1,000 mg PO Q8H PRN tab 06/23/20 acetone (urine) test See Rx Instructions .ROUTE .MEDSUPPLY #100 ea 11/08/20 blood sugar diagnostic See Rx Instructions .ROUTE .MEDSUPPLY #100 ea 11/08/20 blood-glucose meter See Rx Instructions .ROUTE .MEDSUPPLY #1 ea 11/08/20 lancets 30 gauge See Rx Instructions .ROUTE .MEDSUPPLY #200 ea 11/08/20 ferrous sulfate 325 mg (65 mg iron) tablet 325 mg PO BID #30 tab 12/22/20 Vits96/Iron Fum/Folic [ S] 1 tab PO DAILY 01/14/21 Ferrous Sulfate 325 mg PO DAILY #60 tab 01/16/21 Ibuprofen [Motrin] 200 - 800 mg PO Q6H PRN #100 tab 01/16/21 - Plan Discharge to:: Home Follow up in office in:: 2 weeks - [place] Information Weight (Grams): 3,498 Infant Sex: Female Score 1 min: 9 Score 5 min: 9 Infant Complications: None
[2021-01-17 07:57] VITALS: BP 119/61
[2021-01-17] MEDS: DOCUSATE SODIUM 100 MG CAPSULE PO SCH (08:41)
--- NOTE | 2021-01-17 08:53 | PN ---
Subjective - Date and Time Seen Date: 01/17/21 Time: 08:53 Objective - Vitals Vitals: Last Vital Signs Temp 36.6 C 01/17/21 07:00 Pulse 70 01/17/21 07:00 Resp 18 01/17/21 07:00 BP 119/61 01/17/21 07:00 Pulse Ox 99 01/17/21 07:00 Patient denies complaints. Lochia wnl abdomen - soft, nontender Uterus -firm, at umbilicus - 2 No calf tenderness Impression: day #2 - s/p spontaneous vaginal delivery. Preeclampsia- resolved. Gestational diabetes-resolved. Plan: Routine discharge instructions. Preeclampsia precautions. Assessment/Plan - Problems/Diagnosis (1) (normal spontaneous vaginal delivery) Problem: Acute (2) Preeclampsia Problem: Resolved Qualifiers: Trimester: third trimester Qualified Code(s): O14.93 - Unspecified pre- eclampsia, third trimester (3) Gestational diabetes Problem: Resolved Qualifiers: Gestational diabetes mellitus control: insulin-controlled Trimester: third trimester Qualified Code(s): O24.414 - Gestational diabetes mellitus in , insulin controlled (4) Anemia Problem: Chronic Qualifiers: Anemia type: iron deficiency Iron deficiency anemia type: inadequate dietary iron intake Qualified Code(s): D50.8 - Other iron deficiency anemias (5) Anxiety disorder Problem: Chronic Qualifiers: Anxiety disorder type: unspecified anxiety disorder Qualified Code(s): F41.9 - Anxiety disorder, unspecified (6) Smoker Problem: Chronic (7) HSV antigen DIF positive Problem: Chronic (8) History of LEEP (loop electrosurgical excision procedure) of cervix complicating Problem: Chronic Qualifiers: Trimester: third trimester Qualified Code(s): O34.43 - Maternal care for other abnormalities of cervix, third trimester; Z98.890 - Other specified postprocedural states (9) History of delivery, currently Problem: Chronic (10) History of placenta abruption Problem: Chronic
== END 2021-01-17 10:00 | disposition home or self-care (01) | DRG 806 ==
LOC: OBCLINIC 15:48 → OB 17:55
PROVIDERS: ADMIT Obstetrics & Gynecology; ATTEND Obstetrics & Gynecology